=== PATIENT | female | born 1965 | race Caucasian/White ===

== ENCOUNTER 2018-10-20 08:27 | Emergency (ER) | payer BC ==
[~2018-10-20] VITALS: Ht 165.1 cm; Wt 86.7 kg
[2018-10-20 11:27] VITALS: BP 121/61
== END 2018-10-20 11:44 | disposition home or self-care (01) ==
LOC: ED 10:52
DX: I71.2 Thoracic aortic aneurysm, without rupture (principal); J30.2 Other seasonal allergic rhinitis; R07.89 Other chest pain
CPT/HCPCS: 36415; 71275; 80053; 84484; 85025; 85610; 85730; 93005; 99284; Q9967